=== PATIENT | female | born 1990 | race Caucasian/White ===

== ENCOUNTER 2024-07-20 18:49 | Emergency (ER) | payer SELFPAY ==
[2024-07-20 19:16] VITALS: TEMP 98.6; O2SAT 98
--- NOTE | 2024-07-20 19:22 | ERPHSYRPT ---
- History of Present Illness Time Seen by Provider: 07/20/24 19:20 Historian: patient Exam Limitations: no limitations Patient Subjective Stated Complaint: Abdominal pain Triage Nursing Assessment: Patient ambulated back to ED and transferred self to bed. Patient A+O X 3. Patient's skin pink, warm and dry. Patient complains of abdominal pain that started around noon today that is getting worse. Patient complains of N/V and diarrhea. Abdomen soft and round with BS X 4. Patient complains of pain to abdomen 9/10. Allergies/Adverse Reactions: latex Allergy (Verified 07/20/24 19:04) Hx Influenza Vaccination/Date Given: No Hx Pneumococcal Vaccination/Date Given: No Immunizations Up to Date: Yes Travel Risk - International Travel Have you traveled outside of the country in past 3 weeks: No - Emerging Infectious Disease Are you exhibiting symptoms associated with any current EIDs: No - Past Medical History Pertinent Past Medical History: Yes Neurological History: No Pertinent History ENT History: No Pertinent History Cardiac History: No Pertinent History Respiratory History: Asthma Endocrine Medical History: No Pertinent History Musculoskeletal History: No Pertinent History GI Medical History: Diverticulitis History: No Pertinent History Psycho-Social History: No Pertinent History Female Reproductive Disorders: No Pertinent History Other Medical History: Tachycardia. hx of diverticulitis - Past Surgical History Past Surgical History: Yes Neuro Surgical History: No Pertinent History Cardiac: No Pertinent History Respiratory: No Pertinent History Gastrointestinal: Appendectomy Genitourinary: No Pertinent History Musculoskeletal: No Pertinent History Female Surgical History: Tubal Ligation - Female History Hx Last Menstrual Period: last month Hx Now: No - Social History Smoking Status: Never smoker Exposure to second hand smoke: Yes Drug Use: none - Social Determinants of Health Will the patient participate in the screening: Yes Do you worry about a steady place to live?: No Do you have any problems with any of the following?: No known problems In the past 12 months,have you had to go without utilities?: No Transportation Issues: No Has anyone in your support network made you feel unsafe?: No Have you or anyone in your house had to go without enough: No - Nursing Vital Signs Nursing Vital Signs: Initial Vital Signs Pulse Rate 117 H 07/20/24 19:04 Respiratory Rate 22 07/20/24 19:04 Blood Pressure 125/92 07/20/24 19:04 Pain Scale Pain Intensity 5 - Physical Exam SpO2: 98 Ordered Tests: Active Orders 24 hr Category Date Time Status ABDOMEN AND PELVIS W CONTRAST [CT] Stat Exams 07/20/24 19:21 Completed CBC W DIFF Stat Lab 07/20/24 19:10 Completed CMP Stat Lab 07/20/24 19:10 Completed CULTURE,URINE Stat Lab 07/20/24 19:10 Received LIPASE Stat Lab 07/20/24 19:10 Completed Lactic Acid Stat Lab 07/20/24 19:20 Completed UA W/RFX UR CULTURE Stat Lab 07/20/24 19:10 Completed Medication Summary Discontinued Medications Generic Name Dose Route Start Last Admin Trade Name Rakanq PRN Reason Stop Dose Admin Sodium Chloride 1,000 mls @ 999 mls/hr 07/20/24 19:20 07/20/24 20:58 Sodium Chloride 0.9% 1000 Ml IV 07/20/24 20:20 Infused .Q1H1M STA Infusion Sodium Chloride Confirm 07/20/24 19:35 Sodium Chloride 0.9% 1000 Ml Administered 07/20/24 19:36 Dose 1,000 mls @ ud .ROUTE .STK-MED ONE Ceftriaxone Sodium 1 gm in 100 mls @ 200 mls/hr 07/20/24 20:10 07/20/24 20:58 Rocephin 1 Gm / 100 Ml Nacl IV 07/20/24 20:39 Infused STAT ONE Infusion Ceftriaxone Sodium Confirm 07/20/24 20:16 Rocephin 1 Gm / 100 Ml Nacl Administered 07/20/24 20:17 Dose 1 gm in 100 mls @ ud IV .STK-MED ONE Metronidazole 500 mg in 100 mls @ 200 mls/hr 07/20/24 20:39 07/20/24 21:18 Flagyl 500 Mg Ivpb IV 07/20/24 21:08 Infused STAT STA Infusion Metronidazole Confirm 07/20/24 20:40 Flagyl 500 Mg Ivpb Administered 07/20/24 20:41 Dose 500 mg in 100 mls @ ud IV .STK-MED ONE Morphine Sulfate 2 mg 07/20/24 19:20 07/20/24 19:41 Morphine Sulfate 2 Mg/Ml Inj IV 07/20/24 19:21 2 mg STAT ONE Administration Morphine Sulfate Confirm 07/20/24 19:35 Morphine Sulfate 2 Mg/Ml Inj Administered 07/20/24 19:36 Dose 2 mg .ROUTE .STK-MED ONE Ondansetron HCl 4 mg 07/20/24 19:20 07/20/24 19:41 Ondansetron Hcl 4 Mg/2 Ml Vial IV 07/20/24 19:21 4 mg STAT ONE Administration Ondansetron HCl Confirm 07/20/24 19:35 Ondansetron Hcl 4 Mg/2 Ml Vial Administered 07/20/24 19:36 Dose 4 mg .ROUTE .STK-MED ONE Lab/Rad Data: Laboratory Result Diagrams 07/20/24 19:10 07/20/24 19:10 Laboratory Results 07/20/24 07/20/24 07/20/24 Range/Units 19:20 19:10 19:10 WBC (3.98-10.04) x10^3/uL RBC (3.93-5.22) x10^6/uL Hgb (11.2-15.7) g/dL Hct (34.1-44.9) % MCV (79.4-94.8) fL MCH (25.6-32.2) pg MCHC (32.2-35.5) g/dL RDW (11.7-14.4) % Plt Count (182-369) x10^3/uL MPV (9.4-12.3) fL Gran % (34.0-71.1) % Immature Gran % (Auto) (0.001-0.429) % Nucleat RBC Rel Count (0.00-0.2) % Eos # (Auto) (0.04-0.36) x10^3/uL Immature Gran # (Auto) (0.001-0.031) x10^3u/L Absolute Lymphs (auto) (1.18-3.74) x10^3/uL Absolute Monos (auto) (0.24-0.86) x10^3/uL Absolute Nucleated RBC (0.00-0.012) x10^3u/L Lymphocytes % (19.3-51.7) % Monocytes % (4.7-12.5) % Eosinophils % (0.7-5.8) % Basophils % (0.1-1.2) % Absolute Granulocytes (1.56-6.13) x10^3/uL Basophils # (0.01-0.08) x10^3/uL Sodium 139 (135-145) mmol/L Potassium 3.8 (3.5-5.1) mmol/L Chloride 107 (98-107) mmol/L Carbon Dioxide 21 L (22-30) mmol/L Anion Gap 14.6 (5-15) MEQ/L BUN 14 (7-17) mg/dL Creatinine 0.57 (0.52-1.04) mg/dL Estimated GFR 123.0 ML/MIN Glucose 119 H (74-106) mg/dL Lactic Acid 1.2 (0.4-2.0) Calcium 9.7 (8.4-10.2) mg/dL Total Bilirubin 1.10 (0.2-1.3) mg/dL AST 36 (14-36) U/L ALT 31 (0-35) U/L Alkaline Phosphatase 68 (38-126) U/L Serum Total Protein 8.1 (6.3-8.2) g/dL Albumin 4.9 (3.5-5.0) g/dL Lipase 63 (23-300) U/L Urine Color Yellow (Yellow) Urine Appearance Cloudy A (Clear) Urine pH 5.5 (4.6-8.0) Ur Specific Franklin 1.025 (1.005-1.030) Urine Protein Trace A (Negative) Urine Glucose (UA) Negative (Negative) mg/dL Urine Ketones 40 A (Negative) Urine Blood Moderate A (Negative) Urine Nitrite Negative (Negative) Urine Bilirubin Negative (Negative) Urine Urobilinogen 1.0 A (0.2) mg/dL Ur Leukocyte Esterase Small A (Negative) U Hyaline Cast (Auto) NONE SEEN (0-2) /LPF Urine Microscopic RBC 6-10 A (0-5) /HPF Urine Microscopic WBC 21-50 A (0-5) /HPF Ur Epithelial Cells Moderate A (None Seen) /HPF Urine Bacteria Moderate A (None Seen) /HPF Urine Culture Reflexed YES (NO) 07/20/24 Range/Units 19:10 WBC 18.8 H (3.98-10.04) x10^3/uL RBC 4.62 (3.93-5.22) x10^6/uL Hgb 14.2 (11.2-15.7) g/dL Hct 41.6 (34.1-44.9) % MCV 90.0 (79.4-94.8) fL MCH 30.7 (25.6-32.2) pg MCHC 34.1 (32.2-35.5) g/dL RDW 12.4 (11.7-14.4) % Plt Count 284 (182-369) x10^3/uL MPV 9.0 L (9.4-12.3) fL Gran % 89.1 H (34.0-71.1) % Immature Gran % (Auto) 0.3 (0.001-0.429) % Nucleat RBC Rel Count 0.0 (0.00-0.2) % Eos # (Auto) 0.04 (0.04-0.36) x10^3/uL Immature Gran # (Auto) 0.06 H (0.001-0.031) x10^3u/L Absolute Lymphs (auto) 1.02 L (1.18-3.74) x10^3/uL Absolute Monos (auto) 0.90 H (0.24-0.86) x10^3/uL Absolute Nucleated RBC 0.00 (0.00-0.012) x10^3u/L Lymphocytes % 5.4 L (19.3-51.7) % Monocytes % 4.8 (4.7-12.5) % Eosinophils % 0.2 L (0.7-5.8) % Basophils % 0.2 (0.1-1.2) % Absolute Granulocytes 16.77 H (1.56-6.13) x10^3/uL Basophils # 0.03 (0.01-0.08) x10^3/uL Sodium (135-145) mmol/L Potassium (3.5-5.1) mmol/L Chloride (98-107) mmol/L Carbon Dioxide (22-30) mmol/L Anion Gap (5-15) MEQ/L BUN (7-17) mg/dL Creatinine (0.52-1.04) mg/dL Estimated GFR ML/MIN Glucose (74-106) mg/dL Lactic Acid (0.4-2.0) Calcium (8.4-10.2) mg/dL Total Bilirubin (0.2-1.3) mg/dL AST (14-36) U/L ALT (0-35) U/L Alkaline Phosphatase (38-126) U/L Serum Total Protein (6.3-8.2) g/dL Albumin (3.5-5.0) g/dL Lipase (23-300) U/L Urine Color (Yellow) Urine Appearance (Clear) Urine pH (4.6-8.0) Ur Specific Franklin (1.005-1.030) Urine Protein (Negative) Urine Glucose (UA) (Negative) mg/dL Urine Ketones (Negative) Urine Blood (Negative) Urine Nitrite (Negative) Urine Bilirubin (Negative) Urine Urobilinogen (0.2) mg/dL Ur Leukocyte Esterase (Negative) U Hyaline Cast (Auto) (0-2) /LPF Urine Microscopic RBC (0-5) /HPF Urine Microscopic WBC (0-5) /HPF Ur Epithelial Cells (None Seen) /HPF Urine Bacteria (None Seen) /HPF Urine Culture Reflexed (NO) - Progress Progress: improved Progress Note: 07/20/24 21:31 CT abd/pel showed 1. Mild circumferential mural thickening of a few small bowel loops on the right side of the abdomen with prominent vasa recta, the possibility of infective/inflammatory enteritis. Recommended clinical correlation 2. Few (at least 3 ) hypodense lesions with centripetal enhancement in the right lobe of the liver, varying in size from 20 to 25 mm, may represent hemangiomas. morphine and fluids improved sx significantly UA shows UTI - given dose of IV rocephin given dose IV flagyl for possible infectious enteritis, wbc elevated 18k discussed admission for IV abx vs dc home w/ PO abx - pt requesting to be di scharged home, I believe this is appropriate to trial PO abx management as vitals have been stable throughout ED stay, pt has been resting comfortably in bed, no episodes of emesis or diarrhea in ED plan for discharge home w/ oral antibiotics 5d metronidazole 3 times per day + ciprofloxacin twice a day recommend plenty of oral hydration w/ clear liquids and electrolyte containing fluids recommend tylenol/ibuprofen for pain, heating pad for discomfort return to ED if: develop bloody stool or vomit, pain becomes unbearable, develop fevers that do not resolve w/ tylenol Medical Desision Making - Diagnostic Testing Diagnostic test were ordered, analyzed, and reviewed by me: Yes Radiological Interpretation: Reviewed by me, Teleradiologist Report - Risk of complications Low Risk: Low risk of morbidity from additional dx testing or treatment - Departure Departure Disposition: Home Clinical Impression: Enteritis UTI (urinary tract infection) Qualifiers: Urinary tract infection type: acute cystitis Hematuria presence: with hematuria Qualified Code(s): N30.01 - Acute cystitis with hematuria Condition: Stable Critical Care Time: No Additional Instructions: plan for discharge home w/ oral antibiotics 5d metronidazole 3 times per day + ciprofloxacin twice a day recommend foods rich in probiotics like cottage cheese, yogurts to help prevent diarrhea recommend plenty of oral hydration w/ clear liquids and electrolyte containing fluids recommend tylenol/ibuprofen for pain, heating pad for discomfort return to ED if: develop bloody stool or vomit, pain becomes unbearable, develop fevers that do not resolve w/ tylenol Prescriptions: Ciprofloxacin [Cipro 500 MG] 500 mg PO BID 5 Days #10 tablet Metronidazole 500 mg [Flagyl 500 MG] 500 mg PO Q8H 5 Days #15 tablet
[2024-07-20 19:31] LABS: Absolute Neutrophil Ct (ANC) 16.77 x10^3/uL (1.56-6.13); BASOPHIL % 0.2 % (0.1-1.2); Basophil (Absolute #) 0.03 x10^3/uL (0.01-0.08); Eosinophil % 0.2 % (0.7-5.8); Eosinophil (Absolute #) 0.04 x10^3/uL (0.04-0.36); Hematocrit 41.6 % (34.1-44.9); Hemoglobin 14.2 g/dL (11.2-15.7); IMMATURE GRAN # 0.06 x10^3u/L (0.001-0.031); IMMATURE GRAN % 0.3 % (0.001-0.429); Lymphocyte (Absolute #) 1.02 x10^3/uL (1.18-3.74); Lymphocytes % 5.4 % (19.3-51.7); Mean Corpuscular Hemoglobin 30.7 pg (25.6-32.2); Mean Corpuscular Hgb Concent. 34.1 g/dL (32.2-35.5); Monocytes % 4.8 % (4.7-12.5); Neutrophil % 89.1 % (34.0-71.1); Platelet Count 284 x10^3/uL (182-369); Red Blood Count 4.62 x10^6/uL (3.93-5.22); Red Cell Distribution Width 12.4 % (11.7-14.4); White Blood Count 18.8 x10^3/uL (3.98-10.04)
[2024-07-20] MEDS ORDERED: Sodium Chloride 0.9% 1000 ML 1,000 ML ONE (19:35)
[2024-07-20] MEDS ORDERED: MORPHINE SULFATE 2 MG INJ ONE (19:35)
[2024-07-20] MEDS ORDERED: Zofran 4 MG/2 ML VIAL ONE (19:35)
[2024-07-20 19:39] LABS: Appearance Cloudy (Clear); Bacteria Moderate /HPF (None Seen); Bilirubin Negative (Negative); Blood Moderate (Negative); Epithelial Cells Moderate /HPF (None Seen); Glucose, Urine Negative (Negative); Hyaline Casts NONE SEEN /LPF (0-2); Ketones 40 (Negative); Leukocyte Esterase Small (Negative); Nitrite Negative (Negative); Ph 5.5 (4.6-8.0); Protein,Urine Dip Trace (Negative); Specific Gravity 1.025 (1.005-1.030); WBC 21-50 /HPF (0-5)
[2024-07-20] MEDS: Zofran 4 MG/2 ML VIAL IV ONE (19:41)
[2024-07-20] MEDS: MORPHINE SULFATE 2 MG INJ IV ONE (19:41)
[2024-07-20] MEDS: Sodium Chloride 0.9% 1000 ML 1,000 ML IV STA (19:41)
[2024-07-20 19:46] LABS: ALBUMIN 4.9 g/dL (3.5-5.0); ANION GAP 14.6 MEQ/L (5-15); BILIRUBIN,TOTAL 1.1 mg/dL (0.2-1.3); Calcium 9.7 mg/dL (8.4-10.2); Creatinine 1 0.57 mg/dL (0.52-1.04); Potassium 3.8 mmol/L (3.5-5.1); Total Protein 8.1 g/dL (6.3-8.2)
[2024-07-20 19:48] LABS: ADD URINE CULTURE? YES (NO)
[2024-07-20] MEDS ORDERED: ROCEPHIN 1 GM / 100 ML NaCl 1 GM/100 ML IVPB IV ONE (20:16)
[2024-07-20] MEDS: ROCEPHIN 1 GM / 100 ML NaCl 1 GM/100 ML IVPB IV ONE (20:23)
--- NOTE | 2024-07-20 20:33 | XRAY ---
CLINICAL HISTORY: epigastric pain, abdominal pain COMPARISON: None. TECHNIQUE: A CT scan of the abdomen and pelvis was performed with IV contrast. Coronal and sagittal reconstructive images were also obtained. One of the following dose reduction techniques was utilized for this exam: Automated exposure control, adjustment of the mA and/or kV according to patient size, and use of iterative reconstruction. FINDINGS: ]Abdomen: Mild circumferential mural thickening of a few small bowel loops on the right side of the abdomen with prominent vasa recta, the possibility of infective/inflammatory enteritis. The liver is normal in size. Few (at least 3 ) hypodense lesions with centripetal enhancement in the right lobe of liver, varying in size from 20 to 25 mm, representing hemangiomas. The portal vein, intrahepatic biliary radicals and the bile ducts are normal. The gallbladder is normal. No pericholecystic collection or radio-dense calculi in the gall bladder. The spleen, pancreas, and adrenal glands are unremarkable. The kidneys are normal in size and shape. No calculi or hydronephrosis. The ascending colon, the transverse colon, the descending colon, and the rest of the visualized small bowel loops are unremarkable. Post appendicectomy status. Pelvis: The urinary bladder is unremarkable. The rectosigmoid colon is unremarkable. The uterus appears unremarkable. The cervix appears bulky. Corpus luteal cyst on the right side. No evidence of pelvic lymphadenopathy. IMPRESSION: 1. Mild circumferential mural thickening of a few small bowel loops on the right side of the abdomen with prominent vasa recta, the possibility of infective/inflammatory enteritis. Recommended clinical correlation 2. Few (at least 3 ) hypodense lesions with centripetal enhancement in the right lobe of the liver, varying in size from 20 to 25 mm, may represent hemangiomas. [facility] ER was called at [phone] at 07:24 PM RESIDENT SURGEON, 07/20/2024 Bay Rodriguez was informed regarding the presence of important medical findings in the report. Electronically Signed by: Nii Nolen MD. (07/20/2024 20:30:42 EDT)
[2024-07-20] MEDS ORDERED: FLAGYL 500 MG IVPB 500 MG/100 ML BAG IV ONE (20:40)
[2024-07-20] MEDS: FLAGYL 500 MG IVPB 500 MG/100 ML BAG IV STA (20:42)
[2024-07-20 21:04] VITALS: BP 111/72; PULSE 91; RESP 19
== END 2024-07-20 21:59 | disposition home or self-care (01) ==
LOC: ED 18:49
DX: K52.9 Noninfective gastroenteritis and colitis, unspecified (principal); R10.9 Unspecified abdominal pain; R11.2 Nausea with vomiting, unspecified; N30.01 Acute cystitis with hematuria
CPT/HCPCS: 36000; 36415; 74177; 80053; 81001; 83605; 83690; 85025; 87086; 96365; 96367; 96374; 96375; 99284; J0696; J2270; J2405